=== PATIENT | male | born 1990 | race Caucasian/White ===

== ENCOUNTER 2024-06-08 08:47 | Emergency (ER) | payer OTHER, SELFPAY ==
[2024-06-08 08:54] VITALS: BP 131/72; PULSE 120; RESP 22; TEMP 37.1; O2SAT 96
--- NOTE | 2024-06-08 08:57 | ED.URI ---
HPI - URI/Sore Throat General Chief Complaint: Upper Respiratory Infection Stated Complaint: Sore Throat/Headace Time Seen by Provider: 06/08/24 08:59 Source: patient and RN notes reviewed Mode of arrival: ambulatory Limitations: no limitations History of Present Illness HPI Narrative: 34-year-old male presents with concern for 24 hour history of fever, cough, nasal drainage, sore throat. Reports fever up to 102.5. Reports he took TheraFlu. MD elicited complaint: sore throat Related Data Allergies Allergy/AdvReac Type Severity Reaction Status Date / Time No Known Allergies Allergy Verified 06/08/24 08:59 Review of Systems Review of Systems: CONSTITUTIONAL: Reports malaise, sweats, or fever. EYES: Denies visual changes, redness, or discharge. ENT: Reports rhinorrhea, congestion, sore throat. CARDIOVASCULAR: Denies chest pain, palpitations, or edema. RESPIRATORY: Reports cough. Denies dyspnea. GASTROINTESTINAL: Denies abdominal pain, nausea, vomiting, diarrhea SKIN: Denies rash or itching. MUSCULOSKELETAL: Reports myalgia. NEUROLOGIC: Denies headache. All systems reviewed & are unremarkable except as noted in HPI and below PMFSH Comments At time of signature, agree with nursing past medical, surgical, social and family history. There is no relevant family history pertinent to the presenting complaint Exam Narrative: GENERAL: Nontoxic-appearing, well-nourished, and in no acute distress. HEAD: Normocephalic EYES: PERRLA, conjunctivae clear ENT: Nares clear, turbinates edematous and erythematous, clear discharge. Mucous membranes moist. TM pearly avelar with dull light reflex bilaterally; no tragal tenderness. Oropharynx not erythematous without lesions. Tonsils not enlarged and without exudate, no drooling, no hoarseness, no trismus, uvula midline. NECK: Supple. No lymphadenopathy CHEST: Clear to auscultation, breath sounds equal. No wheezing, rhonchi, rales, or stridor. No respiratory distress, speaks in full sentences. HEART: Regular rate and rhythm. No murmur heard. SKIN: Warm, dry, no rash. NEURO: Alert and oriented x3. PSYCH: Normal mood and affect Course Course Emergency Course: Patient is aware of diagnosis, understands and agrees to treatment plan. Anticipatory guidance given. Patient agrees to follow-up as directed and is aware of reasons to seek care at the emergency department. Portions of this record may have been created with voice recognition software Level of Care: Express Care Visit Vital Signs Vital signs: Vital Signs Temperature 98.7 F 06/08/24 08:54 Pulse Rate 120 H 06/08/24 08:54 Respiratory Rate 22 H 06/08/24 08:54 Blood Pressure 131/72 06/08/24 08:54 Pulse Oximetry 96 06/08/24 08:54 Oxygen Delivery Room Air 06/08/24 08:54 Temperature 98.7 F 06/08/24 08:54 Pulse Rate 120 H 06/08/24 08:54 Respiratory Rate 22 H 06/08/24 08:54 Blood Pressure 131/72 06/08/24 08:54 Pulse Oximetry 96 06/08/24 08:54 Oxygen Delivery Room Air 06/08/24 08:54 Reviewed. MDM - URI/Sore Throat MDM Narrative Medical decision making narrative: Differential diagnosis considered: Ford virus, strep pharyngitis, allergic rhinitis, upper respiratory tract infection, sinusitis, rhinosinusitis, nasopharyngitis. viral pharyngitis, otitis media, otitis externa, pneumonia, bronchitis, viral cough syndrome, viral syndrome, and influenza. Exam findings show no acute concerns or changes; patient is non-toxic appearing and is in no distress. Patient is appropriate for outpatient treatment and follow-up. Lab Data Attestation: I reviewed the patient's lab results. Critical Care Time Critical Care Time Critical Care Time: No Discharge Plan Discharge Clinical Impression: Influenza A Patient Disposition: Home, Self-Care Condition: Stable Instructions: Influenza (ED) Additional Instructions: -Take strict precautions to prevent the spread of your virus. Be diligent about covering your cough (even when you are alone) and washing your hands frequently. -You may contagious until you have been symptom and/or fever free for 24 hours without fever reducing medicine -Alternate Ibuprofen and Tylenol for pain and fever relief (per package directions) -Drink plenty of fluid - drink fluid with electrolytes such as Gatorade or other oral re-hydration solution. Avoid caffeine, which can make dehydration worse. -Get plenty of rest to help your body heal. -Use a cool mist humidifier for chest and nasal congestion. -Eat RAW honey or use cough drops to ease throat discomfort -Do not smoke or expose children to secondhand smoke -Wash your hands frequently. -Please follow-up with your primary care doctor in the next 1-2 days if your symptoms do not improve. -If you have any worsening of symptoms or any other concerns please go to the ED immediately. -Please take medications as prescribed and continue taking your home medications as usual. Patient Language: Kinyarwanda Prescriptions: New pseudoephedrine HCl [12 Hour Decongestant] 120 mg tablet extended release 120 mg PO Q12H PRN (Reason: nasal congestion) Qty: 20 0RF dextromethorphan-guaifenesin [Mucinex DM] 60-1,200 mg tablet extended release 12 hr 1 tablet PO Q12H Qty: 12 0RF oseltamivir 75 mg capsule 75 mg PO BID 5 Days Qty: 10 0RF Follow-up/Referrals: PHYSICIAN,MASTER YACHT [Primary Care Provider] - Stand Alone Forms: Work/School Release IP Time of Disposition: 09:06
[2024-06-08 09:03] LABS: EDCOVIDSCREEN Negative (Negative); EDINFLUASCREEN Positive (Negative); EDINFLUBSCREEN Negative (Negative)
== END 2024-06-08 09:13 | disposition home or self-care (01) ==
PROVIDERS: Emergency Provider Nurse Practitioner
DX: J10.1 Influenza due to other identified influenza virus with other respiratory manifestations (principal); Z20.822 Contact with and (suspected) exposure to COVID-19
CPT/HCPCS: 87426; 87804; 99213; G0463

== ENCOUNTER 2025-03-21 09:10 | Emergency (ER) | payer OTHER, SELFPAY ==
--- NOTE | ~2025-03-21 | XR_ITS ---
EXAMINATION: XR toe 1st LT min 2V DATE: 03/21/2025 09:42 INDICATION: Injury TECHNIQUE: Left great toe were obtained. COMPARISON: None. FINDINGS: No displaced fracture lucency or radiopaque foreign body seen. Mild soft tissue swelling about the great toe may be present. IMPRESSION: 1. No displaced fracture lucency. Reviewed, dictated and finalized at location A. HER OPERATOR
[2025-03-21 09:14] VITALS: BP 136/89; PULSE 74; RESP 20; TEMP 36.4; O2SAT 99
--- NOTE | 2025-03-21 10:08 | ED.LOWEXIN ---
HPI - Extremity Injury (Lower) General Chief Complaint: Extremity Injury, Lower Stated Complaint: Left Foot Big toe Time Seen by Provider: 03/21/25 09:50 Source: patient and RN notes reviewed Mode of arrival: ambulatory Limitations: no limitations History of Present Illness HPI Narrative: 34-year-old male patient Presents Express Care complaining of injury to left toe last night. Patient reports dropping an ammunition box on his left toe while wearing boots. Patient reports bruising and swelling to his left toe. Patient tried ice without relief. Patient reports pain with bearing weight to his left foot. Patient denies any numbness, tingling or any other injuries. Patient denies any significant past medical history. Related Data Home Medications ?Medication ?Instructions ?Recorded ?Confirmed ?Last Taken ?Type No Home Medications 03/21/25 Unknown History Allergies Allergy/AdvReac Type Severity Reaction Status Date / Time amoxicillin Allergy Unknown Unknown Verified 03/21/25 09:25 Review of Systems Review of Systems: CONSTITUTIONAL: Denies fever, chills, or sweats. EYES: Denies visual changes, redness, or discharge. ENT: Denies rhinorrhea, congestion, sore throat, or otalgia. CARDIOVASCULAR: Denies chest pain, palpitations, or edema. RESPIRATORY: Denies cough or dyspnea. GASTROINTESTINAL: Denies abdominal pain, nausea, vomiting, or diarrhea. GENITOURINARY: Denies dysuria or hematuria. SKIN: Denies rash, wound, or itching. MUSCULOSKELETAL: Denies back pain, joint pain, or myalgia. Positive for left toe injury and swelling NEUROLOGIC: Denies headache, numbness, or weakness. PSYCHIATRIC: Denies anxiety or depression. All other systems reviewed are negative, except as documented in HPI. PMFSH Comments At the time of my signature, I reviewed and agree with the nursing past medical, surgical, social, and family history. There is no relevant family history pertinent to the patient complaint. Exam Narrative: GENERAL: This is a well-nourished, well-developed adult, in no apparent distress. They are non ill-appearing, nontoxic appearing. HEAD: normocephalic, atraumatic. EYES: Sclera clear/white. Vision is grossly intact. Conjunctiva normal. Extraocular movement intact. EARS: External ears normal Hearing grossly intact. NOSE: External nose normal THROAT: Mucous membranes moist NECK: Neck supple CARDIOVASCULAR: Regular rate and rhythm RESPIRATORY: Respiratory rate normal, respiratory effort nonlabored, no respiratory distress NEURO: awake, alert, and oriented to person, place and time. There were no obvious focal neurologic abnormalities. EXTREMITIES: Left toe: No obvious deformity. Toe is erythematous and ecchymotic. Nail bed and plate are intact. There is pain through full range of motion. Left toe tender to palpate throughout. Capillary refill less than 3 seconds. Left pedal Pulse 2 +palpable. Normal sensation. Neurovascular status intact distal injury. BACK: Nontender without deformity. Course Course Level of Care: Express Care Visit Vital Signs Vital signs: Vital Signs Temperature 97.5 F L 03/21/25 09:14 Pulse Rate 74 03/21/25 09:14 Respiratory Rate 20 03/21/25 09:14 Blood Pressure 136/89 03/21/25 09:14 Pulse Oximetry 99 03/21/25 09:14 Oxygen Delivery Room Air 03/21/25 09:14 Temperature 97.5 F L 03/21/25 09:14 Pulse Rate 74 03/21/25 09:14 Respiratory Rate 20 03/21/25 09:14 Blood Pressure 136/89 03/21/25 09:14 Pulse Oximetry 99 03/21/25 09:14 Oxygen Delivery Room Air 03/21/25 09:14 [facility] MDM Narrative Medical decision making narrative: X-ray left total negative for any fractures or acute findings. Likely crush injury of toe. Offered postop shoe and he declined. Discussed supportive care and rice therapy. Discussed physical exam findings. Advised supportive measures and signs/symptoms to go to the ER. Pt is appropriate for outpt treatment and f/u. Differential Diagnosis Differential Diagnosis: Toe contusion, toe sprain, toe fracture, crush injury Imaging Data Radiologist's impression: ITS Impressions Toe X-Ray 03/21/25 09:42 IMPRESSION: 1. No displaced fracture lucency. Critical Care Time Critical Care Time Critical Care Time: No Discharge Plan Discharge Clinical Impression: Crush injury of toe Qualifiers: Encounter type: initial encounter Laterality: left Qualified Code(s): S97.102A - Crushing injury of unspecified left toe(s), initial encounter Patient Disposition: Home Condition: Stable Instructions: Crush Injury (ED) Additional Instructions: The x-ray of your left toes negative for any fractures or acute findings. Rest and elevate the leg; bear weight as tolerated Apply ice 15-20 minute intervals several times a day You may take ibuprofen 600 mg to 800 mg every 6-8 hours. Do not exceed more than 800 mg of ibuprofen per dose. Do not exceed more than 3200 mg ibuprofen in a day. You may take up to 1000 mg Tylenol every 6-8 hours. Do not exceed 1000 mg per dose, do exceed more than 4000 mg of Tylenol in a day. Follow up with your primary care provider as needed in 1-2 weeks especially if pain is persistent after 10 days Go to the ER if he develops any severe uncontrollable pain, numbness, tingling, cold or blue extremity, or any serious concerns. Patient Language: Kyrgyz Prescriptions: No Action No Home Medications Follow-up/Referrals: PHYSICIAN,DIGITAL STRATEGIST [Primary Care Provider, Internal Medicine] Stand Alone Forms: Work/School Release IP Time of Disposition: 10:07
== END 2025-03-21 10:10 | disposition home or self-care (01) ==
DX: S97.112A Crushing injury of left great toe, initial encounter (principal); W20.8XXA Other cause of strike by thrown, projected or falling object, initial encounter
CPT/HCPCS: 73660; 99213; G0463